=== PATIENT | male | born 1945 | race Caucasian/White ===

== ENCOUNTER 2020-04-01 02:55 | Emergency (ER) | payer MEDICARE ==
[2020-04-01] MEDS ORDERED: MORPHINE SULFATE 2 MG INJ IV ONE (03:15)
[2020-04-01] MEDS ORDERED: MORPHINE SULFATE 2 MG INJ ONE (03:19)
--- NOTE | 2020-04-01 03:22 | ERPHSYRPT ---
- History of Present Illness Time Seen by Provider: 04/01/20 03:00 Historian: patient Exam Limitations: no limitations Patient Subjective Stated Complaint: pt states he has burning pain in his chest and epigastric area. states it started l brandon reflusx but got much worse. Triage Nursing Assessment: pt alert and oriented, answers questions approp. pt ambulatory with steady gait noted. skin warm and dry. pt short of breath while walking. able to speak in complete sentences. skin warm and dry. heart rate 76 on monitor, sinus rhythm. peripheral pulse intact. Physician History: Patient is a 75-year-old male with a history of triple bypass and 13 cardiac stents presents to our ED for evaluation of chest pain and dyspnea on exertion. Pain started approximately 20 minutes prior to arrival. Pain described as a burning sensation in the epigastrium that radiates up into his chest. Patient has a history of reflux. Patient states the pain is similar but much worse. No associated nausea or vomiting. No trauma. No fevers. Symptoms are constant. Symptoms are moderate in intensity. No specific worsening or improving factors. No history of smoking. Patient voices no other complaints at this time. Timing/Duration: today Activities at Onset: emotional stress Quality: aching Location: epigastric Chest Pain Radiation: no radiation Modifying Factors: Improves With: nothing Associated Symptoms: shortness of breath, No nausea, No vomiting, No cough, No hurts to breathe, No chills, No fever, No weakness, No syncope, No dizziness Prior Chest Pain/Cardiac Workup: echocardiography, stress test Nitro Today/Relief: no nitro taken today Aspirin Treatment Today: no aspirin today (Patient is currently on Eliquis.) Allergies/Adverse Reactions: meperidine [From Demerol] Adverse Reaction (Verified 04/01/20 03:13) Home Medications: Apixaban [Eliquis] 5 mg PO BID 04/01/20 [History] Atorvastatin Calcium 80 mg PO DAILY 04/01/20 [History] Isosorbide Mononitrate 60 mg [Imdur 60MG] 60 mg PO DAILY 04/01/20 [History] Losartan Potassium [Cozaar] 100 mg PO DAILY 04/01/20 [History] Metoprolol Succinate 100 mg [Toprol Xl 100 MG] 200 mg PO DAILY 04/01/20 [History] Omeprazole 40 mg PO DAILY 04/01/20 [History] Prednisone 5 mg [Deltasone 5 mg] 5 mg PO DAILY 04/01/20 [History] Tamsulosin HCl 0.4 mg [Flomax 0.4 MG] 0.4 mg PO DAILY 04/01/20 [History] Hx Tetanus, Diphtheria Vaccination/Date Given: Yes Hx Influenza Vaccination/Date Given: Yes Hx Pneumococcal Vaccination/Date Given: Yes Immunizations Up to Date: Yes Travel Risk - International Travel Have you traveled outside of the country in past 3 weeks: No - Coronavirus Screening Are you exhibiting any of the following symptoms?: No Close contact with a COVID-19 positive Pt in past 14-21 Days: No - Review of Systems Constitutional: No Symptoms, No Fever, No Chills Eyes: No Symptoms Ears, Nose, & Throat: No Symptoms Respiratory: No Symptoms, No Cough, No Dyspnea Cardiac: No Symptoms, No Chest Pain, No Edema, No Syncope Abdominal/Gastrointestinal: No Symptoms, No Abdominal Pain, No Nausea, No Vomiting, No Diarrhea Genitourinary Symptoms: No Symptoms, No Dysuria Musculoskeletal: No Symptoms, No Back Pain, No Neck Pain Skin: No Symptoms, No Rash Neurological: No Symptoms, No Dizziness, No Focal Weakness, No Sensory Changes Psychological: No Symptoms Endocrine: No Symptoms Hematologic/Lymphatic: No Symptoms Immunological/Allergic: No Symptoms All Other Systems: Reviewed and Negative - Past Medical History Neurological History: Stroke Cardiac History: Coronary Artery Disease, High Cholesterol, Hypertension Respiratory History: COPD GI Medical History: GERD - Past Surgical History Past Surgical History: Yes Cardiac: CABG, Cardiac Stent Musculoskeletal: Orthopedic Surgery Other Surgical History: loop recorder. mult back and neck surgery, knee and hip replacement, mult arthroscopies on knee. 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 - Social History Smoking Status: Never smoker Exposure to second hand smoke: No Drug Use: none Patient Lives Alone: No - Nursing Vital Signs Nursing Vital Signs: Initial Vital Signs Pulse Rate 76 04/01/20 02:58 Blood Pressure 218/113 04/01/20 02:58 O2 Sat by Pulse Oximetry 99 04/01/20 02:58 Pain Scale Pain Intensity 10 - Physical Exam General Appearance: no apparent distress, alert Eye Exam: PERRL/EOMI, eyes nml inspection Ears, Nose, Throat Exam: normal ENT inspection, moist mucous membranes Neck Exam: normal inspection, non-tender, supple, full range of motion Respiratory Exam: normal breath sounds, lungs clear, other (Well healed sternotomy scar.), No respiratory distress Cardiovascular Exam: regular rate/rhythm, normal heart sounds, capillary refill <2 sec, other (1+ pitting edema bilateral lower extremities. Patient states this is chronic.) Gastrointestinal/Abdomen Exam: soft, other (Mild tenderness to palpation at the epigastric region. Overlying soft tissue intact.), No tenderness, No mass Back Exam: normal inspection, normal range of motion, No CVA tenderness, No vertebral tenderness Extremity Exam: normal inspection, normal range of motion Neurologic Exam: alert, oriented x 3, cooperative, normal mood/affect, sensation nml, No motor deficits Skin Exam: normal color, warm, dry Lymphatic Exam: No adenopathy SpO2 Interpretation: normal SpO2: 99 O2 Delivery: Room Air - Course Nursing assessment & vital signs reviewed: Yes EKG Interpreted by Me: RATE (77), Sinus Rhythm, NORMAL AXIS, prolonged QT interval - Radiology Exams Chest X-ray Interpretation: Interpreted by me (Infiltrate or consolidation. No effusion. No pneumothorax. Normal-appearing cardiac silhouette. 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 04/01/20 03:15 Active EKG-ER Only STAT Care 04/01/20 03:15 Active IV Insertion STAT Care 04/01/20 03:15 Active Pulse Oximetry (ED) STAT Care 04/01/20 03:15 Active CHEST 1 VIEW (PORTABLE) Stat Exams 04/01/20 03:15 Taken CBC W DIFF Stat Lab 04/01/20 03:37 Completed CMP Stat Lab 04/01/20 03:37 Completed LIPASE Stat Lab 04/01/20 03:37 Completed TROPONIN Q3H Lab 04/01/20 03:37 Completed TROPONIN Q3H Lab 04/01/20 06:15 Ordered TROPONIN Q3H Lab 04/01/20 09:15 Ordered TROPONIN Q3H Lab 04/01/20 12:15 Ordered TROPONIN Q3H Lab 04/01/20 15:15 Ordered Medication Summary Discontinued Medications Generic Name Dose Route Start Last Admin Trade Name Freq PRN Reason Stop Dose Admin Morphine Sulfate 2 mg 04/01/20 03:15 04/01/20 03:21 Morphine Sulfate 2 Mg Inj IV 04/01/20 03:16 2 mg STAT ONE Administration Morphine Sulfate Confirm 04/01/20 03:19 Morphine Sulfate 2 Mg Inj Administered 04/01/20 03:20 Dose 2 mg .ROUTE .STK-MED ONE Lab/Rad Data: Laboratory Result Diagrams 04/01/20 03:37 04/01/20 03:37 Laboratory Results 04/01/20 04/01/20 04/01/20 Range/Units 03:37 03:37 03:37 WBC 7.5 (4.0-10.5) K/mm3 RBC 4.66 (4.1-5.6) M/mm3 Hgb 13.3 (12.5-18.0) gm/dl Hct 41.4 L (42-50) % MCV 88.8 (78-100) fl MCH 28.5 (26-32) pg MCHC 32.1 (32-36) g/dl RDW 16.1 H (11.5-14.0) % Plt Count 179 (150-450) K/mm3 MPV 10.7 (7.5-11.0) fl Gran % 51.9 (36.0-66.0) % Eos # (Auto) 0.13 (0-0.5) Absolute Lymphs (auto) 2.72 (1.0-4.6) Absolute Monos (auto) 0.75 (0.0-1.3) Lymphocytes % 36.1 (24.0-44.0) % Monocytes % 10.0 (0.0-12.0) % Eosinophils % 1.7 (0.00-5.0) % Basophils % 0.3 (0.0-0.4) % Absolute Granulocytes 3.91 (1.4-6.9) Basophils # 0.02 (0-0.4) Sodium 139 (137-145) mmol/L Potassium 3.7 (3.5-5.1) mmol/L Chloride 105 (98-107) mmol/L Carbon Dioxide 25 (22-30) mmol/L Anion Gap 13.2 (5-15) MEQ/L BUN 22 H (9-20) mg/dL Creatinine 0.97 (0.66-1.25) mg/dL Estimated GFR > 60.0 ML/MIN Glucose 99 (74-106) mg/dL Calcium 9.3 (8.4-10.2) mg/dL Total Bilirubin 0.60 (0.2-1.3) mg/dL AST 24 (17-59) U/L ALT 21 (0-50) U/L Alkaline Phosphatase 105 (38-126) U/L Troponin I < 0.012 (0.000-0.034) ng/mL Serum Total Protein 7.5 (6.3-8.2) g/dL Albumin 4.4 (3.5-5.0) g/dL Lipase 108 (23-300) U/L - Progress Progress: improved Air Movement: good Progress Note: 04/01/20 05:04 Patient reassessed. Patient is pain-free. Patient stated he "burped" and pain resolved. Patient believes pain was due to gas/reflux. Patient states he feels well and is requesting discharge. We advised patient to stay in the hospital for further evaluation and treatment. Patient has extensive cardiac history. Patient declined. Patient is of sound mind. Patient appropriate to make informed independent medical decisions. Patient understands that leaving AGAINST MEDICAL ADVICE can result in delayed diagnosis, worsening of symptoms, increased risk morbidity, mortality, short and long-term disability including . In spite of his risks patient has decided to leave AGAINST MEDICAL ADVICE. Patient understands he may return to our ED at any point to resume his work-up and or for admission. 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 Maradiaga within 48 hours for reevaluation. Blood Culture(s) Obtained: No Antibiotics given: No Counseled pt/family regarding: lab results, diagnosis, need for follow-up, rad results - Departure Departure Disposition: AMA Clinical Impression: ACS (acute coronary syndrome), SHEETS (dyspnea on exertion) Condition: Stable Critical Care Time: No Referrals: JAZLYN CABALLERO PA [Primary Care Provider] - Additional Instructions: Discharge/Care Plan NA UNGER was seen on 04/01/20 in the Emergency Room. The patient was counseled regarding Diagnosis,Lab results, Imaging studies, need for follow up and when to return to the Emergency Room. Prescriptions given: Discharge Note I have spoken with the patient and/or caregivers. I have explained the patient's condition, diagnosis and treatment plan based on the information available to me at this time. I have answered the patient's and/or caregiver's questions and addressed any concerns. The patient and/or caregivers have as good understanding of the patient's diagnosis, condition and treatment plan as can be expected at this point. The vital signs have been stable. The patient's condition is stable and appropriate for discharge from the emergency department. The patient will pursue further outpatient evaluation with the primary care physician or other designated or consulting physician as outlined in the discharge instructions. The patient and/or caregivers are agreeable to this plan of care and follow-up instructions have been explained in detail. The patient and/or caregivers have received these instruction. The patient/and or caregivers are aware that any significant change in condition or worsening of symptoms should prompt an immediate return to this or the closest emergency department or call 911.
[2020-04-01 04:10] LABS: Absolute Neutrophil Ct (ANC) 3.91 (1.4-6.9); BASOPHIL % 0.3 % (0.0-0.4); Basophil (Absolute #) 0.02 (0-0.4); Eosinophil % 1.7 % (0.00-5.0); Eosinophil (Absolute #) 0.13 (0-0.5); Hematocrit 41.4 % (42-50); Hemoglobin 13.3 gm/dl (12.5-18.0); Lymphocyte (Absolute #) 2.72 (1.0-4.6); Lymphocytes % 36.1 % (24.0-44.0); Mean Cell Volume 88.8 fl (78-100); Mean Corpuscular Hemoglobin 28.5 pg (26-32); Mean Corpuscular Hgb Concent. 32.1 g/dl (32-36); Mean Platelet Volume 10.7 fl (7.5-11.0); Monocyte (Absolute #) 0.75 (0.0-1.3); Neutrophil % 51.9 % (36.0-66.0); Platelet Count 179 K/mm3 (150-450); Red Blood Count 4.66 M/mm3 (4.1-5.6); Red Cell Distribution Width 16.1 % (11.5-14.0); White Blood Count 7.5 K/mm3 (4.0-10.5)
[2020-04-01 04:14] LABS: ALBUMIN 4.4 g/dL (3.5-5.0); ALKALINE PHOSPHATASE 105 U/L (38-126); ANION GAP 13.2 MEQ/L (5-15); BLOOD UREA NITROGEN 22 mg/dL (9-20); CHLORIDE 105 mmol/L (98-107); Calcium 9.3 mg/dL (8.4-10.2); Carbon Dioxide 25 mmol/L (22-30); Creatinine 1 0.97 mg/dL (0.66-1.25); Glucose 99 mg/dL (74-106); LIPASE 108 U/L (23-300); Potassium 3.7 mmol/L (3.5-5.1); SGOT/AST 24 U/L (17-59); SGPT/ALT 21 U/L (0-50); SODIUM 139 mmol/L (137-145); Total Protein 7.5 g/dL (6.3-8.2)
[2020-04-01 05:01] VITALS: BP 200/105; PULSE 72
[2020-04-01 05:04] VITALS: O2SAT 99
--- NOTE | 2020-04-01 09:40 | XRAY ---
Indication: Chest pain. Comparison: December 23, 2007. Portable chest clear of infiltrate, consolidation, or large effusion. Heart is not enlarged again demonstrating CABG surgery. Bony thorax intact with osteopenia and degenerative changes. Impression: Nonacute chest with chronic features.
== END 2020-04-01 05:13 | disposition left against medical advice (07) ==
LOC: ED 02:55
DX: I24.9 Acute ischemic heart disease, unspecified (principal); R06.00 Dyspnea, unspecified; I10 Essential (primary) hypertension; E78.00 Pure hypercholesterolemia, unspecified; Z71.3 Dietary counseling and surveillance
CPT/HCPCS: 36000; 36415; 71045; 80053; 83690; 84484; 85025; 93005; 93041; 94760; 96374; 99284; J2270